=== PATIENT | male | born 2000 | race Caucasian/White ===

== ENCOUNTER 2022-06-05 22:24 | Emergency (ER) | payer OTHER ==
[2022-06-05 23:41] LABS: BASOPHILS % (AUTO) 0.7 %; EOSINOPHILS # (AUTO) 0.4 10^3/uL (0.0-0.7); EOSINOPHILS % (AUTO) 6.4 %; HCT - HEMATOCRIT 43.9 % (42.0-52.0); HGB - HEMOGLOBIN 15.3 g/dL (14.0-18.0); LYMPHOCYTES % (AUTO) 32.9 %; MEAN CORPUSCULAR HEMOGLOBIN 30.7 pg (27.0-31.0); MEAN CORPUSCULAR HGB CONC 34.9 g/dL (32.0-36.0); MEAN CORPUSCULAR VOLUME 88.2 fL (80.0-94.0); MEAN PLATELET VOLUME 9.2 fL (7.4-11.4); MONOCYTES # (AUTO) 0.6 10^3/uL (0.0-1.0); NEUTROPHILS # (AUTO) 3.1 10^3/uL (1.5-6.6); NEUTROPHILS % (AUTO) 50.8 %; PLT - PLATELET COUNT 289 10^3/uL (130-450); RED BLOOD COUNT 4.98 10^6/uL (4.70-6.10); RED CELL DISTRIBUTION WIDTH 12.4 % (12.0-15.0); WHITE BLOOD COUNT 6.1 x10^3/uL (4.8-10.8)
[2022-06-05 23:53] LABS: ALBUMIN 4.4 g/dL (3.2-5.5); ALBUMIN/GLOBULIN RATIO 1.4 (1.0-2.2); BILIRUBIN,TOTAL 0.6 mg/dL (0.2-1.0); CALCIUM 9.2 mg/dL (8.5-10.3); CREATININE 0.9 mg/dL (0.6-1.2); POTASSIUM 3.9 mmol/L (3.5-5.0); TOTAL PROTEIN 7.6 g/dL (6.7-8.2)
--- NOTE | 2022-06-06 01:27 | ED Physician Documentation ---
PD HPI ABD PAIN - Stated complaint Stated Complaint: PASSING BLOOD - Chief complaint Chief Complaint: Abd Pain - History obtained from History obtained from: Patient - Additional information Additional information: 21-year-old male, previously healthy, presents withBright red blood per rectum having a bowel movement today. Denies fever, nausea, vomiting, diarrhea, recent illness, constipation. Denies family history of Crohn's disease or ulcerative colitis.Never had blood in the stool before.Denies eating bright red food or beets. Review of Systems Ten Systems: 10 systems reviewed and negative Constitutional: denies: Fever, Chills GI: reports: Bloody / black stool. denies: Abdominal Pain, Nausea, Vomiting, Diarrhea PD PAST MEDICAL HISTORY - Present Medications Home Medications: Ambulatory Orders Medication Instructions Recorded Confirmed No Known Home Medications 06/05/22 06/05/22 - Allergies Allergies/Adverse Reactions: Allergies Allergy/AdvReac Type Severity Reaction Status Date / Time No Known Drug Allergies Allergy Verified 06/05/22 22:45 PD ED PE NORMAL - Vitals Vital signs reviewed: Yes - General General: Alert and oriented X 3, No acute distress, Well developed/nourished - HEENT HEENT: Atraumatic, PERRL, EOMI - Neck Neck: Supple, no meningeal sign - Cardiac Cardiac: RRR - Respiratory Respiratory: No respiratory distress, Clear bilaterally - Abdomen Abdomen: Non tender, Non distended - Rectal Rectal: Other (No external or internal hemorrhoids. Brown stool in the vault) - Back Back: No CVA TTP - Derm Derm: Normal color, Warm and dry - Extremities Extremities: No deformity - Neuro Neuro: Alert and oriented X 3, No motor deficit, No sensory deficit - Psych Psych: Normal mood, Normal affect Results - Vitals Vitals: Vital Signs - 24 hr 06/05/22 22:42 Temperature 36.6 C Heart Rate 66 Respiratory 18 Rate Blood Pressure 142/78 H O2 Saturation 99 Oxygen O2 Source Room air - Labs Labs: Laboratory Tests 06/05/22 06/05/22 23:34 23:34 WBC 6.1 RBC 4.98 Hgb 15.3 Hct 43.9 MCV 88.2 MCH 30.7 MCHC 34.9 RDW 12.4 Plt Count 289 MPV 9.2 Neut # (Auto) 3.1 Lymph # (Auto) 2.0 Bulloch # (Auto) 0.6 Eos # (Auto) 0.4 Baso # (Auto) 0.0 Absolute Nucleated RBC 0.00 Nucleated RBC % 0.0 Sodium 136 Potassium 3.9 Chloride 104 Carbon Dioxide 29 Anion Gap 3.0 L BUN 14 Creatinine 0.9 Estimated GFR (MDRD) 106 Glucose 87 Calcium 9.2 Total Bilirubin 0.6 AST 27 ALT 31 Alkaline Phosphatase 43 Total Protein 7.6 Albumin 4.4 Globulin 3.2 Albumin/Globulin Ratio 1.4 Lipase 37 PD MEDICAL DECISION MAKING - ED course ED course: 21-year-old man presented with scant hematochezia x1. Lab work, exam, vital signs all unremarkable. Fecal occult blood test sent. [place] precautions given Departure - Departure Disposition: 01 Home, Self Care Clinical Impression: Bright red blood per rectum Condition: Good Instructions: ED Hematochezia Stable Comments: You were seen in the ED for bright red blood in your stool. Your vital signs and labwork were normal. Your exam was normal. [place] and return to the ED if you have new or worsening symptoms or other concerns.
[2022-06-06 01:31] VITALS: BP 130/78
== END 2022-06-06 01:32 | disposition home or self-care (01) ==
LOC: ED 22:24
DX: K62.5 Hemorrhage of anus and rectum (principal)
CPT/HCPCS: 36415; 80053; 82270; 82272; 83690; 85025; 99282; 99283

== ENCOUNTER 2024-01-28 08:12 | Outpatient (CLI) | payer OTHER ==
--- NOTE | 2024-01-28 18:06 | MRI Report ---
PROCEDURE: Soft Tissue Neck W/WO INDICATIONS: NECK MASS CONTRAST: 16.8ml Clariscan TECHNIQUE: Sagittal/axial/coronal T1 spin echo and STIR. After the administration of contrast, axial/coronal/sa gittal T1 fast spin echo with fat saturation through the neck. COMPARISON: None. FINDINGS: Image quality: Excellent. Lymph nodes: No enlarged nodes are seen throughout the neck. Vessels: Visualized vasculature appears normal, with javier flow voids and enhancement. Neck spaces: The oropharynx, nasopharynx and pharynx are unremarkable, without mucosal lesions seen. Vocal cords, false vocal cords, pyriform sinuses, epiglottis, vallecula, and tongue base all appear normal. Extramucosal spaces of the neck also appear unremarkable. Glands: In this patient with this given history, scrutiny is given to the right submandibular gland. The right submandibular gland demonstrates a normal appearance and is symmetric and left-sided subma ndibular gland. No significant or masses are seen. The parotid glands appear normal. The thyroid is normal in size and there are no incidental findings . Miscellaneous: Visualized brain and orbits appear normal. Lung apices appear clear. Superficial so ft tissues appear normal. Visualized sinuses and mastoids appear clear. Bones: Marrow has normal overall signal. IMPRESSION: Normal right submandibular gland, which is symmetric to the left submandibular gland. No masses or abnormal enhancement can be seen. No enlarged lymph nodes are seen. Reviewed by: Alexander Melchor MD on 01/28/2024 5:05 PM ARMINDA Approved by: Alexander Melchor MD on 01/28/2024 5:05 PM [id number] Station ID: [id number]
== END 2024-01-28 08:13 | disposition home or self-care (01) ==
LOC: DI 08:12
DX: Q85.01 Neurofibromatosis, type 1 (principal); R22.1 Localized swelling, mass and lump, neck
CPT/HCPCS: 70543; A9575